=== PATIENT | female | born 1955 | race Caucasian/White ===

== ENCOUNTER 2019-03-22 19:09 | Emergency (ER) | payer BC ==
[2019-03-22] MEDS ORDERED: NORMAL SALINE 1000 ML 1,000 ML IV PRN (19:56)
--- NOTE | 2019-03-22 19:59 | ER Document Report ---
ED Medical Screen (RME) - General Chief Complaint: Breathing Difficulty Stated Complaint: CHILLS/BODY PAIN/DIFFICULTY BREATHING Time Seen by Provider: 03/22/19 19:51 Mode of Arrival: Ambulatory Information source: Patient Notes: 64-year-old female patient presenting to the emergency department with low back pain, dysuria, urinary frequency and fever. Patient reports she thinks she may have a urinary tract infection. Patient also reports recently having a cardiac ablation done approximately 3 weeks ago. Exam: Tenderness noted to the low abdomen. Tenderness across the low back over the lumbar paraspinous area, no vertebral tenderness. I have greeted and performed a rapid initial assessment of this patient. A comprehensive ED assessment and evaluation of the patient, analysis of test results and completion of the medical decision making process will be conducted by additional ED providers. I have specifically instructed the patient or family members with the patient to immediately return to any nursing staff should anything change in the patient's condition or with their chief complaint. This medical record was dictated with voice recognizing software. There may be grammatical, syntax errors that are unintended. Physical Exam - Vital signs Vitals: Temp Pulse Resp BP Pulse Ox 101.3 F H 114 H 18 140/70 H 93 03/22/19 19:15 03/22/19 19:15 03/22/19 19:15 03/22/19 19:15 03/22/19 19:15 Course - Vital Signs Vital signs: Temp Pulse Resp BP Pulse Ox 101.3 F H 114 H 18 140/70 H 93 03/22/19 19:15 03/22/19 19:15 03/22/19 19:15 03/22/19 19:15 03/22/19 19:15
[2019-03-22 21:20] LABS: ABSOLUTE EOSINOPHILS # (AUTO) 0.1 10^3/uL (0.0-0.6); ABSOLUTE LYMPHOCYTES (AUTO) 0.7 10^3/uL (0.5-4.7); ABSOLUTE MONOCYTES (AUTO) 0.3 10^3/uL (0.1-1.4); ABSOLUTE NEUT (AUTO) 10.8 10^3/uL (1.7-8.2); BASOPHILS % (AUTO) 0.2 % (0-2); EOSINOPHILS % (AUTO) 0.6 % (0-6); HEMATOCRIT 37.6 % (36.0-47.0); HEMOGLOBIN 12.6 g/dL (12.0-15.5); LYMPHOCYTES % (AUTO) 5.6 % (13-45); MEAN CORPUSCULAR HEMOGLOBIN 26.1 pg (27.0-33.4); MEAN CORPUSCULAR HGB CONC 33.6 g/dL (32.0-36.0); MEAN CORPUSCULAR VOLUME 78 fl (80-97); MONOCYTES % (AUTO) 2.6 % (3-13); PLATELET COUNT 213 10^3/uL (150-450); RED BLOOD COUNT 4.84 10^6/uL (3.72-5.28); RED CELL DISTRIBUTION WIDTH 14.9 % (11.5-14.0); TOTAL CELLS COUNTED % (AUTO) 100 %; WHITE BLOOD COUNT 11.8 10^3/uL (4.0-10.5)
[2019-03-22 21:35] LABS: APPEARANCE,URINE SLIGHTLY-CLOUDY; BILIRUBIN,URINE NEGATIVE (NEGATIVE); COLOR,URINE YELLOW; GLUCOSE, URINE NEGATIVE (NEGATIVE); KETONES,URINE NEGATIVE (NEGATIVE); LEUKOCYTE ESTERASE,URINE MODERATE (NEGATIVE); NITRITE,URINE POSITIVE (NEGATIVE); PROTEIN,URINE 100 mg/dL (NEGATIVE); URINE SPECIFIC GRAVITY 1.018; UROBILINOGEN,URINE NEGATIVE mg/dL (<2.0)
[2019-03-22 21:39] LABS: ALBUMIN 4.3 g/dL (3.5-5.0); ALKALINE PHOSPHATASE 92 U/L (38-126); ANION GAP 12 (5-19); ASPARTATE AMINO TRANSFERASE 24 U/L (14-36); BILIRUBIN,DIRECT 0.1 mg/dL (0.0-0.4); BILIRUBIN,TOTAL 0.9 mg/dL (0.2-1.3); BLOOD UREA NITROGEN 17 mg/dL (7-20); CALCIUM 9.7 mg/dL (8.4-10.2); CARBON DIOXIDE 24 mmol/L (22-30); CHLORIDE 104 mmol/L (98-107); GLUCOSE 102 mg/dL (75-110); POTASSIUM 3.6 mmol/L (3.6-5.0); TOTAL PROTEIN 7.1 g/dL (6.3-8.2)
[2019-03-22] MEDS ORDERED: ACETAMINOPHEN 325 MG TABLET PO ONE (21:47)
[2019-03-22 21:59] LABS: A TYPE INFLUENZA AG NEGATIVE (NEGATIVE); B INFLUENZA AG NEGATIVE (NEGATIVE)
[2019-03-22] MEDS ORDERED: IBUPROFEN 800 MG TABLET PO ONE (23:16)
[2019-03-22] MEDS ORDERED: CEPHALEXIN 500 MG CAPSULE PO ONE (23:16)
--- NOTE | 2019-03-22 23:20 | ER Document Report ---
ED General - General Chief Complaint: Pain All Over Stated Complaint: CHILLS/BODY PAIN/DIFFICULTY BREATHING Time Seen by Provider: 03/22/19 19:51 Mode of Arrival: Ambulatory Notes: 64-year-old female with history of recurrent UTIs presents the emergency department complaining of feeling drained for the past 2 weeks but a sudden onset of chills and rigors at 4 PM this evening. States is associated with low back pain that does not radiate. Denies any dysuria or frequency. Denies any nausea, vomiting, diarrhea, shortness of breath or cough. Denies any abdominal pain. Patient is concerned she may have the flu though she did get her flu vaccine. Denies any other associated symptoms. TRAVEL OUTSIDE OF THE [place] IN LAST 30 DAYS: No - Related Data Home Medications: metoprolol ER 200 mg qday. pradaxa qday. MVI Past Medical History - General Information source: Patient - Social History Smoking Status: Never Smoker Cigarette use (# per day): No Chew tobacco use (# tins/day): No Frequency of alcohol use: None Drug Abuse: None Lives with: Spouse/Significant other Family History: Reviewed & Not Pertinent Patient has suicidal ideation: No Patient has homicidal ideation: No Review of Systems - Review of Systems Constitutional: See HPI, Fever Musculoskeletal: See HPI -: Yes All other systems reviewed and negative Physical Exam - Vital signs Vitals: Temp Pulse Resp BP Pulse Ox 101.3 F H 114 H 18 140/70 H 93 03/22/19 19:15 03/22/19 19:15 03/22/19 19:15 03/22/19 19:15 03/22/19 19:15 Interpretation: Tachycardic, Febrile - Notes Notes: GENERAL: Alert, interacts well. No acute distress. HEAD: Normocephalic, atraumatic EYES: Pupils equal, round and reactive to light, extraocular movements intact. ENT: Oral mucosa moist, tongue midline. NECK: Full range of motion, supple, trachea midline. LUNGS: Clear to auscultation bilaterally, no wheezes, rales or rhonchi, no respiratory distress. HEART: Regular rate and rhythm, no murmurs, gallops, rubs. ABDOMEN: Soft, nontender, nondistended, bowel sounds present in all 4 quadrants. BACK: No CVA tenderness to percussion. EXTREMITIES: Moves all 4 extremities spontaneously. No cyanosis. NEUROLOGICAL: Alert and oriented x3, normal speech. PSYCH: Normal mood, normal affect. SKIN: Warm, Dry, normal turgor, no rashes or lesions noted. Course - Re-evaluation Re-evalutation: 03/22/19 23:18 CBC shows slight leukocytosis at 11.8, otherwise unremarkable, CMP unremarkable, lipase normal, urinalysis shows moderate blood which she states she always has, positive nitrites and moderate leukocyte esterase. Flu a and B are negative. Discussed with patient that her symptoms are suspicious for a sending urinary tract infection which is likely moving towards pyelonephritis. Vital signs are stable at this point. Patient will be treated with Keflex by mouth, cultures will be sent. Patient will be discharged to home. - Vital Signs Vital signs: Temp Pulse Resp BP Pulse Ox 101.3 F H 114 H 18 140/70 H 93 03/22/19 19:52 03/22/19 19:15 03/22/19 19:52 03/22/19 19:15 03/22/19 19:52 - Laboratory Result Diagrams: 03/22/19 20:25 03/22/19 20:25 Laboratory results interpreted by me: 03/22/19 03/22/19 20:25 20:25 WBC 11.8 H MCV 78 L MCH 26.1 L RDW 14.9 H Lymph % (Auto) 5.6 L Runnels % (Auto) 2.6 L Absolute Neuts (auto) 10.8 H Seg Neutrophils % 91.0 H Urine Protein 100 H Urine Blood MODERATE H Urine Nitrite POSITIVE H Ur Leukocyte Esterase MODERATE H Discharge - Discharge Clinical Impression: Pyelonephritis UTI (urinary tract infection) Qualifiers: Urinary tract infection type: acute pyelonephritis Qualified Code(s): N10 - Acute pyelonephritis Condition: Stable Disposition: HOME, SELF-CARE Additional Instructions: Pyelonephritis Your evaluation shows evidence of pyelonephritis. This is an infection in the kidney. Typical symptoms are fever, pain in the flank, pain on urination, and frequent urination. Many cases of pyelonephritis can be treated at home. Hospital care may be necessary for patients who are very ill, or elderly or . Pyelonephritis is treated with antibiotics. Be sure to take all the medication as prescribed. Drink plenty of liquids (about three quarts per day). You may take acetaminophen for fever. You should feel significantly improved within two days. You should have a recheck of your urine in about one week to insure that the infection is gone. Return for a re-examination if your symptoms worsen in any way -- such as high fever, shaking chills, severe weakness or dizziness, severe pain, or inability to pass your urine. Prescriptions: Cephalexin Monohydrate [Keflex 500 mg Capsule] 1,000 mg PO BID 10 Days capsule
[2019-03-23 00:12] VITALS: BP 104/43
== END 2019-03-22 23:51 | disposition home or self-care (01) ==
LOC: ER 19:09
DX: N10 Acute pyelonephritis (principal); N12 Tubulo-interstitial nephritis, not specified as acute or chronic; M79.10 Myalgia, unspecified site; M54.5 Low back pain; Z87.440 Personal history of urinary (tract) infections
CPT/HCPCS: 36415; 87040; 83690; 85025; 80053; 81001; 87804; J7030; 87077; 87086; 87088; 87150; 96360; 96361; 99284

== ENCOUNTER 2019-03-23 15:16 | Emergency (ER) | payer BC ==
[2019-03-23 15:32] VITALS: BP 135/87
--- NOTE | 2019-03-23 15:35 | ER Document Report ---
ED Medical Screen (RME) - General Chief Complaint: Abnormal Lab Results Stated Complaint: ABNORMAL LABS Time Seen by Provider: 03/23/19 15:20 Mode of Arrival: Ambulatory Information source: Patient Notes: 64-year-old female presented to ED after she was discharged during the middle of the night for a UTI and started on Keflex. Her urine culture preliminary came back gram-negative rods and her preliminary blood culture came back E. coli. I have consulted Dr. Valdes who is stated that the patient would need to be admitted for E. coli in her blood. Patient states she is actually feeling better she was on Keflex. I have greeted and performed a rapid initial assessment of this patient. A comprehensive ED assessment and evaluation of the patient, analysis of test results and completion of medical decision making process will be conducted by an additional ED providers. TRAVEL OUTSIDE OF THE [place] IN LAST 30 DAYS: No - Related Data Allergies/Adverse Reactions: No Known Allergies Allergy (Verified 03/23/19 15:23)
[2019-03-23 16:18] LABS: APPEARANCE,URINE CLEAR; BILIRUBIN,URINE NEGATIVE (NEGATIVE); COLOR,URINE YELLOW; GLUCOSE, URINE NEGATIVE (NEGATIVE); KETONES,URINE NEGATIVE (NEGATIVE); PROTEIN,URINE 100 mg/dL (NEGATIVE); URINE SPECIFIC GRAVITY 1.009; UROBILINOGEN,URINE NEGATIVE mg/dL (<2.0)
[2019-03-23] MEDS ORDERED: CEFTRIAXONE INJ 1000 MG VIAL IM ONE (19:08)
--- NOTE | 2019-03-23 19:15 | ER Document Report ---
ED General - General Chief Complaint: Abnormal Lab Results Stated Complaint: ABNORMAL LABS Time Seen by Provider: 03/23/19 15:20 Mode of Arrival: Ambulatory Notes: 64-year-old woman presents to the emergency department with a history of seen in the emergency department yesterday. Blood cultures were performed and positive for E. coli in 1 set. Patient was asked to come back to the emergency department for further evaluation and treatment. She states that she feels fine. No fever no chills and symptoms. Denies nausea or aches and pains. TRAVEL OUTSIDE OF THE [place] IN LAST 30 DAYS: No - Related Data Allergies/Adverse Reactions: No Known Allergies Allergy (Verified 03/23/19 15:23) Home Medications: Keflex Past Medical History - General Information source: Patient - Social History Smoking Status: Never Smoker Chew tobacco use (# tins/day): No Drug Abuse: None Family History: Reviewed & Not Pertinent Patient has suicidal ideation: No Patient has homicidal ideation: No Review of Systems - Review of Systems Notes: Constitutional: Negative for fever. HENT: Negative for sore throat. Eyes: Negative for visual changes. Cardiovascular: Negative for chest pain. Respiratory: Negative for shortness of breath. Gastrointestinal: Negative for abdominal pain, vomiting or diarrhea. Genitourinary: Negative for dysuria. Musculoskeletal: Negative for back pain. Skin: Negative for rash. Neurological: Negative for headaches, weakness or numbness. 10 point ROS negative except as marked above and in HPI. Physical Exam - Vital signs Vitals: Temp Pulse Resp BP Pulse Ox 98.0 F 87 18 135/87 H 97 03/23/19 15:31 03/23/19 15:31 03/23/19 15:31 03/23/19 15:31 03/23/19 15:31 - Notes Notes: PHYSICAL EXAMINATION: Physical Exam: General: Well-nourished well-developed female in no acute distress HEENT: NC/AT, pupils equal round and reactive to light, MM moist,nares clear, Neck: supple, no adenopathy, no masses. Lungs: clear, no wheezing, no rales no rhonchi CVS: Regular rate and rhythm no murmur gallop or rub Abdomen: Soft active nontender, no masses, no hepatosplenomegaly Ext: No edema clubbing or cyanosis. Neuro: Alert and responsive, moving all 4 extremities on command, cranial nerves intact. Skin: Intact no open lesions, no rash PSYCH: Normal mood, normal affect. Course - Re-evaluation Re-evalutation: 03/23/19 19:10 Patient with E. coli bacteremia, presently doing well on oral Keflex. I have discussed with the patient concerned that was noted when her cultures were positive and given that she is completely asymptomatic we will give a IM dose of ceftriaxone, follow-up with her primary care doctor as needed. She is instructed to complete the course of cephalexin. She is in agreement with this plan and knowledges an understanding of concerns which were voiced. - Vital Signs Vital signs: Temp Pulse Resp BP Pulse Ox 98.0 F 87 18 135/87 H 97 03/23/19 15:31 03/23/19 15:31 03/23/19 15:31 03/23/19 15:31 03/23/19 15:31 - Laboratory Laboratory results interpreted by me: 03/23/19 15:54 Urine Protein 100 H Urine Blood LARGE H Leukocyte Esterase Rfl MODERATE H Discharge - Discharge Clinical Impression: UTI (urinary tract infection) Qualifiers: Urinary tract infection type: site unspecified Hematuria presence: without hematuria Qualified Code(s): N39.0 - Urinary tract infection, site not specified Condition: Good Disposition: HOME, SELF-CARE Instructions: Cephalexin ([facility]), Urinary Tract Infection ([facility]) Additional Instructions: Because the blood culture was positive, you were brought back to the emergency department and reevaluated. It is obvious that you are not septic and a IM dose of ceftriaxone is given. If you develop symptoms, fever, chills, body aches and pains or nausea and vomiting please return to the emergency department immediately. Please continue your course of oral antibiotics and follow-up with your primary care doctor as needed.
== END 2019-03-23 19:53 | disposition home or self-care (01) ==
LOC: ER 15:16
DX: N39.0 Urinary tract infection, site not specified (principal); A49.8 Other bacterial infections of unspecified site; R78.81 Bacteremia
CPT/HCPCS: 99283; 96372; 87040; 87086; 81001; 83605; J0696